=== PATIENT | female | born 1955 | race Caucasian/White ===

== ENCOUNTER → 2017-01-05 | Outpatient (CLI) | payer BC ==
[~2017-01-05] MED LIST: BUPR300T PO; HYDR50TA5 PO
--- NOTE | 2017-01-12 12:04 | RSPPFT ---
DATE OF PROCEDURE: 01/05/17 COMMENTS: VOLUMES DYNAMIC: FVC and FEV1 normal. STATIC: RV moderately increased; FRC and TLC normal. FLOWS: FEV1% mildly reduced; FEF 25-75 moderately reduced. DIFFUSION: Normal. FLOW VOLUME LOOP: Terminal airflow obstruction. IMPRESSION: Mild obstructive ventilatory defect with moderate hyperinflation and normal diffusion. Airways resistance is increased and there is significant improvement post-bronchodilator.
== END ==
LOC: HRSP 09:44
PROVIDERS: ATTEND Internal Medicine
DX: J44.9 Chronic obstructive pulmonary disease, unspecified (principal); J45.909 Unspecified asthma, uncomplicated
CPT/HCPCS: 94060; 94620; 94726; 94729; 95012